=== PATIENT | male | born 1960 | race Caucasian/White ===

== ENCOUNTER → 2024-02-18 | Outpatient (CLI) | payer MEDICARE, MEDICAID | END | disposition home or self-care (01) | LOC: MRI 13:18 | PROVIDERS: ATTEND Family Medicine | DX: M50.323 Other cervical disc degeneration at C6-C7 level (principal); M16.12 Unilateral primary osteoarthritis, left hip; M67.452 Ganglion, left hip; M25.852 Other specified joint disorders, left hip; M25.752 Osteophyte, left hip; M48.02 Spinal stenosis, cervical region; M47.812 Spondylosis without myelopathy or radiculopathy, cervical region | CPT/HCPCS: 72141; 73721 ==